=== PATIENT | male | born 1955 | race Caucasian/White ===

== ENCOUNTER 2022-09-22 17:00 | Emergency (ER) | payer MEDICARE, SELFPAY ==
[2022-09-22 17:10] VITALS: BP 136/75; PULSE 83; RESP 16; TEMP 36.4; O2SAT 99
--- NOTE | 2022-09-22 17:28 | ED.GENADULT ---
HPI - General Adult General Chief complaint: Extremity Problem,Nontraumatic Stated complaint: WOUND CHECK S/P KNEE SURGERY Time Seen by Provider: 09/22/22 17:25 Source: patient, family, RN notes reviewed and old records reviewed Mode of arrival: ambulatory Limitations: no limitations History of Present Illness HPI narrative: 67 year old male accompanied by spouse with complaints of some swelling and redness of incision on his right total knee which was performed in [place] on the 20 of August. He states that they called his surgeon in [place] earlier in the week because of redness and swelling and warmth of his right total knee incision line and picture sent. Patient reports that physician placed him on Bactrim for possible infection of wound on the 20 of September and and him state that they don't think it is any better. Patient also states some lumbar back pain he states he thinks is related to his decreased mobility and reports that he has had previous back discomfort for which Robaxin was effective to resolve his issue. MD complaint: concern over incision line redness and warmth Onset (ago): day(s) (5 days) Location: right and lower extremity (knee) Severity scale (1-10): 2 Treatments prior to arrival: other (started on Bactrim) Related Data Home Medications Medication Instructions Recorded Confirmed sulfamethoxazole 800 1 tablet PO Q12H 09/22/22 09/22/22 mg-trimethoprim 160 mg tablet (Bactrim DS) Allergies Allergy/AdvReac Type Severity Reaction Status Date / Time aspirin Allergy Hives Verified 09/22/22 17:18 NSAIDS (Non-Steroidal Allergy Hives Verified 09/22/22 17:18 Anti-Inflamma Review of Systems Review of Systems: CONSTITUTIONAL: Denies fever, chills, or sweats. EYES: Denies visual changes, redness, or discharge. ENT: Denies rhinorrhea, congestion, sore throat, or otalgia. CARDIOVASCULAR: Denies chest pain, palpitations, or edema. RESPIRATORY: Denies cough or dyspnea. GASTROINTESTINAL: Denies abdominal pain, nausea, vomiting, or diarrhea. GENITOURINARY: Denies dysuria or hematuria. SKIN: Denies rash or itching.redness swelling and some warmth of incision line right knee. MUSCULOSKELETAL: reports some low back pain,right knee joint pain, or myalgia. NEUROLOGIC: Denies headache, numbness, or weakness. PSYCHIATRIC: Denies anxiety or depression. All systems reviewed & are unremarkable except as noted in HPI and below PMFSH Past Medical History Medical History (Updated 09/23/22 @ 22:55 by Nancy Ryan NP) Arthritis Surgical History Surgical History History of facial surgery reconstruction post accident 45 years ago History of hemorrhoidectomy History of total knee replacement right 08/20/2022 Social History Social History Living arrangements: with family Gender identity (if verbalized by the patient): Male Comments At time of signature, agree with nursing past medical, surgical, social and family history. There is no relevant family history pertinent to the presenting complaint Exam Narrative: GENERAL: Well-appearing, well-nourished, and in no acute distress. HEAD: Normocephalic, atraumatic. EYES: PERRLA and EOMI. ENT: Nares clear, no rhinorrhea or epistaxis. Mucous membranes moist.TM's normal, throat pink with no swelling. NECK: Supple. no lymphadenopathy CHEST: Clear to auscultation. No respiratory distress.SAO2 99% on room air HEART: Regular rate and rhythm. No murmur heard. Normal peripheral pulses. ABDOMEN: Soft, nontender, nondistended, normal active bowel sounds. EXTREMITIES: Normal range of motion. No edema. SKIN: Warm, dry, noted redness swelling of incision line right total knee replacement with palpable warmth, edges are well approximated with no drainage noted. NEURO: No focal deficits. Alert and oriented x3. Course Course Emergency Course:
== END 2022-09-22 17:53 | disposition home or self-care (01) ==
PROVIDERS: Emergency Provider Registered Nurse
DX: T81.41XA Infection following a procedure, superficial incisional surgical site, initial encounter (principal); L03.115 Cellulitis of right lower limb; Z96.651 Presence of right artificial knee joint; M54.50 Low back pain, unspecified
CPT/HCPCS: 99213; G0463

== ENCOUNTER 2022-09-26 12:44 | Emergency (ER) | payer MEDICARE, SELFPAY ==
--- NOTE | 2022-09-26 12:50 | ED.SKABFB ---
HPI - Skin/Abscess/Foreign Bdy General Chief complaint: Wound/Laceration Stated complaint: WOUND CHECK S/P R KNEE SURGERY Time Seen by Provider: 09/26/22 13:03 Source: patient and RN notes reviewed Mode of arrival: ambulatory Limitations: no limitations History of Present Illness HPI narrative: 67-year-old male presents for follow-up for redness to his surgery site. Reports 5 weeks ago he had a knee replacement, he had some redness and swelling, over the phone his surgeon prescribed Bactrim which he took without relief. Reports he was seen here 4 days ago and was given cephalexin. He reports some of the incision redness improved but the proximal incision is still red and swollen. He reports it is tender, but pain has also improved since he took the cephalexin. He denies fever, aches, sweats. His reports he had chills last night. They have an appointment with their orthopedic surgeon tomorrow, they have not seen the orthopedic surgeon in person since the infection started MD complaint: discoloration Related Data Home Medications Medication Instructions Recorded Confirmed sulfamethoxazole 800 1 tablet PO Q12H 09/22/22 09/26/22 mg-trimethoprim 160 mg tablet (Bactrim DS) Allergies Allergy/AdvReac Type Severity Reaction Status Date / Time aspirin Allergy Hives Verified 09/22/22 17:18 NSAIDS (Non-Steroidal Allergy Hives Verified 09/22/22 17:18 Anti-Inflamma Review of Systems Review of Systems: CONSTITUTIONAL: Denies malaise, chills, sweats, or fever. EYES: Denies redness, or discharge. ENT: Denies rhinorrhea, congestion, swollen lips, swollen tongue CARDIOVASCULAR: Denies chest pain, palpitations, or edema. RESPIRATORY: Denies cough or dyspnea. GASTROINTESTINAL: Denies abdominal pain, nausea, vomiting SKIN: Reports redness and swelling of the knee incision and then general swelling of the knee MUSCULOSKELETAL: Denies joint pain or myalgia. NEUROLOGIC: Denies headache. All systems reviewed & are unremarkable except as noted in HPI and below PMFSH Past Medical History Medical History (Updated 09/26/22 @ 13:12 by Devika Flowers NP) Arthritis Surgical History Surgical History History of facial surgery reconstruction post accident 45 years ago History of hemorrhoidectomy History of total knee replacement right 08/20/2022 Social History Social History Living arrangements: with family Gender identity (if verbalized by the patient): Male Comments At time of signature, agree with nursing past medical, surgical, social and family history. There is no relevant family history pertinent to the presenting complaint Exam Narrative: GENERAL: Well-appearing, well-nourished, and in no acute distress. HEAD: Normocephalic, atraumatic. EYES: PERRLA, conjunctivae clear, and EOMI. ENT: Mucous membranes moist. Oropharynx without edema, erythema or lesions. NECK: Supple. No lymphadenopathy CHEST: Clear to auscultation. No respiratory distress. HEART: Regular rate and rhythm. SKIN: Warm, dry. Knee incision is well approximated distal knee incision is erythematous, edematous. MUSC: Circumferential edema noted to the right NEURO: Alert and oriented x3. PSYCH: Normal mood and affect Course Course Emergency Course: Patient was advised to keep his appointment with his orthopedic surgeon tomorrow for re-evaluation. No indication for another antibiotic at this time Patient is aware of, understands and agrees to treatment plan. Anticipatory guidance given. Patient agrees to follow-up as directed and is aware of reasons to seek care at the emergency department. Portions of this record may have been created with voice recognition software Level of Care: Express Care Visit Vital Signs Vital signs: Reviewed. MDM - Skin/Abscess/Foreign Bdy MDM Narrative Medical decision making narrati
[2022-09-26 13:05] VITALS: BP 132/88; PULSE 1; RESP 16; TEMP 36.9; O2SAT 98
== END 2022-09-26 13:16 | disposition home or self-care (01) ==
PROVIDERS: Emergency Provider Nurse Practitioner
DX: T81.40XA Infection following a procedure, unspecified, initial encounter (principal); M19.90 Unspecified osteoarthritis, unspecified site; Z96.651 Presence of right artificial knee joint
CPT/HCPCS: 99212; G0463

== ENCOUNTER 2023-01-21 10:13 | Emergency (ER) | payer MEDICARE, SELFPAY ==
--- NOTE | ~2023-01-21 | XR_ITS ---
AP, oblique, and lateral views of the right fifth toe CLINICAL HISTORY: Injury FINDINGS: There is an oblique, minimally displaced fracture the midshaft of the fifth proximal phalan x. No intra-articular extension. No other fracture or dislocation seen. Soft tissues are unremarkable . IMPRESSION: Oblique, minimally displaced fracture of the midshaft of the fifth proximal phalanx. Reviewed, dictated and finalized at location . IMPRESSION: Oblique, minimally displaced fracture of the midshaft of the fifth proximal pha lanx.
--- NOTE | 2023-01-21 10:17 | ED.LOWEXIN ---
HPI - Extremity Injury (Lower) General Chief Complaint: Extremity Injury, Lower Stated Complaint: R TOE INJURY Time Seen by Provider: 01/21/23 10:16 Source: patient Mode of arrival: ambulatory Limitations: no limitations History of Present Illness HPI Narrative: Patient is a 59-year-old male who presents with right toe pain after hitting it on a bed frame on Saturday. Patient states he kentrell taped toe after injury and it made pain worse. Patient has still been able to walk normally. Denies any numbness to toe. Related Data Home Medications Medication Instructions Recorded Confirmed irbesartan 75 mg tablet mg 01/21/23 metoprolol tartrate 25 mg tablet mg 01/21/23 rosuvastatin 10 mg tablet mg 01/21/23 01/21/23 Allergies Allergy/AdvReac Type Severity Reaction Status Date / Time aspirin Allergy Hives Verified 01/21/23 10:42 NSAIDS (Non-Steroidal Allergy Hives Verified 01/21/23 10:42 Anti-Inflamma Review of Systems Review of Systems: All systems reviewed & are unremarkable except as noted in HPI and below Constitutional: Constitutional: Denies body ache(s), Denies chills, Denies fatigue, Denies fever(s), Denies headache(s), Denies malaise and Denies weakness Eyes: Eyes: Denies blurry vision, Denies irritation and Denies loss of vision ENT: Denies otalgia, Denies headache(s), Denies nasal discharge, Denies sinus pain and Denies sore throat Cardiovascular: Cardiovascular: Denies chest pain, Denies irregular heart rhythm and Denies dyspnea Respiratory: Respiratory: Denies dyspnea Gastrointestinal: Gastrointestinal: Denies abdominal pain, Denies melena, Denies hematochezia, Denies diarrhea, Denies nausea and Denies vomiting Musculoskeletal: Musculoskeletal: Denies back pain, Denies myalgias and Reports arthralgias Integumentary/Breasts: Skin/Breast: Denies pruritus and Denies rash Neurologic: Denies headache(s), Denies loss of vision and Denies weakness Psychiatric: Psychiatric: Reports no additional psychiatric complaints Endocrine: Endocrine: Denies fatigue PMFSH Past Medical History Medical History Arthritis Surgical History Surgical History History of facial surgery reconstruction post accident 45 years ago History of hemorrhoidectomy History of total knee replacement right 08/20/2022 Social History Social History Living arrangements: with family Gender identity (if verbalized by the patient): Male Comments At time of signature, agree with nursing past medical, surgical, social and family history. There is no relevant family history pertinent to the presenting complaint. Exam Const: General: cooperative, healthy appearing, comfortable, no acute distress and well nourished Nutritional Appearance: well nourished Orientation/consciousness: patient oriented x3 Limitations: no limitations HENMT: Head: normal to inspection, normocephalic and atraumatic Ears: hearing grossly normal bilaterally and external ears normal Face/Nose/Sinus: Normal external nose present, normal facial exam and face symmetric Face and sinus: normal facial exam and face symmetric Mouth: Yes lip normal Eyes: General: appearance normal, both eyes and all related structures Alignment and Position: alignment normal and position normal Periorbital: periorbital findings normal Eyelids: eyelids normal Pupils: Equal, round and reactive pupils present EOM: EOMs intact bilaterally Neck: Neck: normal visual inspection, full ROM and supple Chest: Chest palpation & inspection: normal inspection of the chest Resp: Effort & Inspection: normal respiratory effort and able to speak in complete sentences Auscultation: clear to auscultation bilaterally Cardio: Rate: regular rate Rhythm: regular rhythm Heart sounds: S1 normal heart sound present and S2 sammy
[2023-01-21 10:22] VITALS: BP 114/69; PULSE 58; RESP 16; TEMP 36.8; O2SAT 98
== END 2023-01-21 10:54 | disposition home or self-care (01) ==
PROVIDERS: Emergency Provider Nurse Practitioner Family
DX: S92.511A Displaced fracture of proximal phalanx of right lesser toe(s), initial encounter for closed fracture (principal); W22.03XA Walked into furniture, initial encounter; M19.90 Unspecified osteoarthritis, unspecified site; Z96.651 Presence of right artificial knee joint
CPT/HCPCS: 73660; 99213; G0463

== ENCOUNTER 2023-11-08 11:15 | Emergency (ER) | payer MEDICARE, SELFPAY ==
--- NOTE | 2023-11-08 11:20 | ED.EAR ---
HPI - Ear Problem General Chief complaint: Ear Stated complaint: EARACHE Source: patient Mode of arrival: ambulatory Limitations: no limitations History of Present Illness HPI Narrative: Ming is a 68-year-old male who presents to the clinic today with complaints of left ear pain x1-2 days. He states he has been swimming in a [place] a few times past couple weeks. He denies a history of recurrent ear infections, discharge, drainage, cough, sore throat, congestion, shortness breath, or fever/chills. Related Data Home Medications Medication Instructions Recorded Confirmed irbesartan 75 mg tablet 75 mg PO DAILY 01/21/23 11/08/23 metoprolol tartrate 25 mg tablet 25 mg PO DAILY 01/21/23 11/08/23 rosuvastatin 10 mg tablet 10 mg PO DAILY 01/21/23 11/08/23 Allergies Allergy/AdvReac Type Severity Reaction Status Date / Time aspirin Allergy Hives Verified 11/08/23 11:21 NSAIDS (Non-Steroidal Allergy Hives Verified 11/08/23 11:21 Anti-Inflamma Review of Systems Review of Systems: Pertinent positives per HPI. Patient denies any fever, chills, rash, visual changes, dizziness, cough, shortness of breath, chest pain, palpitations, nausea, vomiting, diarrhea, constipation, abdominal pain, or any urinary issues. [facility] Past Medical History Medical History Arthritis Surgical History Surgical History History of facial surgery reconstruction post accident 45 years ago History of hemorrhoidectomy History of total knee replacement right 08/20/2022 Social History Social History Living arrangements: with family Gender identity (if verbalized by the patient): Male Comments At the time of my signature, I reviewed and agree with the nursing past medical, surgical, social, and family history. There is no relevant family history pertinent to the patient complaint. Exam Narrative: General: Well-developed, well nourished, in no apparent distress Head: Normocephalic, atraumatic Eyes: Pupils equally round and reactive to light bilaterally, EOM intact, sclera and conjunctive clear, no discharge, lids normal Ears: TMs intact and clear, ear canals clear, no drainage, grossly hearing normal. Nose: Nares patent, no discharge, no inflammation, no sinus tenderness. Mouth: Oral pharynx without lesions or masses, good dentition, MMM. Neck: Supple, trachea midline, no enlargement of anterior or posterior cervical nodes, no thyroid masses or goiter palpable. Cardio: Regular rate and rhythm, s1 and s2 normal, no murmur appreciated. Resp: Clear to auscultation bilaterally, no rhonchi, rales, wheezing or rubs Course Course Emergency Course: Portions of this record may have been created with voice recognition software. Level of Care: Express Care Visit Vital Signs Vital signs: Vital Signs Temperature 36.6 C 11/08/23 11:24 Pulse Rate 84 11/08/23 11:24 Respiratory Rate 16 11/08/23 11:24 Blood Pressure 106/73 11/08/23 11:24 Pulse Oximetry 100 11/08/23 11:24 Temperature 36.6 C 11/08/23 11:24 Pulse Rate 84 11/08/23 11:24 Respiratory Rate 16 11/08/23 11:24 Blood Pressure 106/73 11/08/23 11:24 Pulse Oximetry 100 11/08/23 11:24 Vital signs reviewed Medical Decision Making MDM Narrative Medical decision making narrative: At the time of visit patient is resting comfortably on the exam table. Patient appears to be nontoxic. Plan: I suspect the patient has left otalgia. Supportive measures were discussed with the patient and they voiced understanding discharge instructions and agrees to treatment plan. Return precautions reviewed Differential Diagnosis Differential Diagnosis: otitis media, otitis externa, otalgia Vital Signs Vital Signs: Vital Signs Temperature 36.6 C 11/08/23 11:24 Pulse
[2023-11-08 11:24] VITALS: BP 106/73; PULSE 84; RESP 16; TEMP 36.6; O2SAT 100
== END 2023-11-08 11:36 | disposition home or self-care (01) ==
PROVIDERS: Emergency Provider Nurse Practitioner Family
DX: H92.02 Otalgia, left ear (principal); M19.90 Unspecified osteoarthritis, unspecified site; Z96.651 Presence of right artificial knee joint
CPT/HCPCS: 99211; G0463

== ENCOUNTER 2024-10-20 08:49 | Outpatient (CLI) | payer MEDICARE, SELFPAY | END 2024-10-20 08:50 | disposition home or self-care (01) | LOC: ANHAUDIO 08:49 | PROVIDERS: Visit Provider Otolaryngology | DX: H91.93 Unspecified hearing loss, bilateral (principal); H93.13 Tinnitus, bilateral | CPT/HCPCS: 92557; 92567 ==

== ENCOUNTER 2025-03-03 00:07 | Day surgery (SDC) | payer MEDICARE, SELFPAY ==
[2025-02-18 15:06] VITALS: BMI 24.2
[2025-03-03 08:04] VITALS: BP 106/71; PULSE 60; RESP 16; TEMP 36; O2SAT 100
[2025-03-03] MEDS: LACTATED RINGERS 1,000 ML 150 ML IV CONT (08:13)
--- NOTE | 2025-03-03 08:29 | WPDANESEPPF ---
Anes - Initial Pre Proc Eval Procedure: Operation Date: 03/03/25 09:00 Proposed Procedures p Screening Colonoscopy - Stanislaw Parisi MD Date/Time: 03/03/25 08:29 Surgeon: Stanislaw Parisi MD Pre Op Diagnosis: Personal history of colon polyps, unspecified Patient Data Age: 70 Gender: M Height: 1.68 m Weight: 69.3 kg Last Vital Signs Temp 36.0 C L 03/03/25 08:04 Pulse 60 03/03/25 08:04 Resp 16 03/03/25 08:04 BP 106/71 03/03/25 08:04 Pulse Ox 100 03/03/25 08:04 O2 Del Method Room Air 03/03/25 08:04 Allergies Allergy/AdvReac Type Severity Reaction Status Date / Time aspirin Allergy Hives Verified 03/03/25 08:03 NSAIDS (Non-Steroidal Allergy Hives Verified 03/03/25 08:03 Anti-Inflamma Home Medications ?Medication ?Instructions ?Recorded ?Confirmed ?Type irbesartan 75 mg tablet 75 mg PO DAILY 01/21/23 03/03/25 History rosuvastatin 10 mg tablet 10 mg PO DAILY 01/21/23 03/03/25 History propranolol 20 mg tablet 20 mg PO DAILY 02/18/25 03/03/25 History Patient hx anesthesia problems: none Family hx anesthesia problems: none Results Review: All pre-operative results and documents have been reviewed as part of the pre-operative evaluation. [facility] Past Medical History Medical History Subacromial bursitis of right shoulder joint Right shoulder pain Arthritis Surgical History Surgical History History of facial surgery reconstruction post accident 45 years ago History of total knee replacement right 08/20/2022 History of hemorrhoidectomy Family History Family History Unknown Hypertension Heart disease Diabetes mellitus Arthritis High cholesterol Social History Social History Social History: caffeine-daily Smoking status: Former smoker Smoking end date: 04/08/96 Alcohol intake: never Substance use: never Substance use type: does not use Living arrangements: with family Gender identity (if verbalized by the patient): Male Anes - Eval Final PreProcedure Day of Procedure 03/03/25 08:29 Patient weight: normal Heart: regular rate and rhythm Lungs: clear to auscultation Airway: Mallampati scale class II Neurological: alert and oriented Last oral intake: >/= 8 hours ASA classification: III Emergent: no Anesthetic plan: proceed Anesthesia type and monitoring: general GIVS and standard monitoring Results Review: All pre-operative results and documents have been reviewed as part of the pre-operative evaluation. Informed Consent: The patient's anesthetic plan and its attendant risks and benefits were discussed with the patient/family/POA. Questions were solicited and answers provided to the satisfaction of the patient/family/POA.
--- NOTE | 2025-03-03 08:32 | PM.HPGS ---
History of Present Illness History of Present Illness Consent: Risks, benefits, and alternatives have been discussed and questions answered. Patient agrees to proceed with procedure. Chief complaint: Personal history of colon polyps, unspecified Narrative: Ming Dickerson is a 70 year old male with colon polyp 5 years ago Review of Systems Review of Systems: All systems reviewed & are unremarkable except as noted in HPI and below PMFSH Past Medical History Medical History (Updated 03/03/25 @ 08:32 by Stanislaw Parisi MD) Colon polyp Subacromial bursitis of right shoulder joint Right shoulder pain Arthritis Surgical History Surgical History History of facial surgery reconstruction post accident 45 years ago History of total knee replacement right 08/20/2022 History of hemorrhoidectomy Family History Family History Unknown Hypertension Heart disease Diabetes mellitus Arthritis High cholesterol Social History Social History Social History: caffeine-daily Smoking status: Former smoker Smoking end date: 04/08/96 Alcohol intake: never Substance use: never Substance use type: does not use Living arrangements: with family Gender identity (if verbalized by the patient): Male Meds Home Medications and Allergies Home Medications ?Medication ?Instructions ?Recorded ?Confirmed ?Type irbesartan 75 mg tablet 75 mg PO DAILY 01/21/23 03/03/25 History rosuvastatin 10 mg tablet 10 mg PO DAILY 01/21/23 03/03/25 History propranolol 20 mg tablet 20 mg PO DAILY 02/18/25 03/03/25 History Allergies Allergy/AdvReac Type Severity Reaction Status Date / Time aspirin Allergy Hives Verified 03/03/25 08:03 NSAIDS (Non-Steroidal Allergy Hives Verified 03/03/25 08:03 Anti-Inflamma Vital Signs Vital Signs - 24 hr 03/03/25 08:04 Temperature 96.8 F L Pulse Rate 60 Respiratory Rate 16 Blood Pressure 106/71 Pulse Oximetry 100 Oxygen Delivery Room Air Exam Const: General: comfortable and no acute distress HENMT: Face/Nose/Sinus: Normal nares present Eyes: General: appearance normal, both eyes and all related structures Resp: Auscultation: clear to auscultation bilaterally Cardio: Rate: regular rate Rhythm: regular rhythm GI: Inspection: non-distended GI Palp: Yes Soft to palpation Skin: General skin exam: normal color Extrem: General: normal to inspection Psych: Mental Status: mental status grossly normal Assessment and Plan Assessment and plan (1) Colon polyp: Code(s): K63.5 - Polyp of colon Status: Acute Assessment and Plan: colonoscopy
[2025-03-03 08:43] VITALS: BP 97/63; PULSE 77; RESP 15; O2SAT 95
[2025-03-03 08:53] VITALS: BP 95/64; PULSE 71; RESP 14; O2SAT 97
[2025-03-03 09:03] VITALS: BP 105/64; PULSE 74; RESP 18; O2SAT 99
== END 2025-03-03 09:10 | disposition home or self-care (01) ==
PROVIDERS: Visit Provider Internal Medicine Gastroenterology
PROC: 0DJD8ZZ Inspection of Lower Intestinal Tract, Via Natural or Artificial Opening Endoscopic (ICD-10-PCS; CPT 45378; principal; 2025-03-03 09:00)
DX: Z12.11 Encounter for screening for malignant neoplasm of colon (principal); K64.8 Other hemorrhoids; K57.30 Diverticulosis of large intestine without perforation or abscess without bleeding; M19.90 Unspecified osteoarthritis, unspecified site; Z98.890 Other specified postprocedural states; Z86.0100 Personal history of colon polyps, unspecified; Z87.891 Personal history of nicotine dependence; Z82.49 Family history of ischemic heart disease and other diseases of the circulatory system
CPT/HCPCS: G0105; J2704; J7120